=== PATIENT | male | born 1950 | race Caucasian/White ===

== ENCOUNTER 2022-11-26 11:32 | Emergency (ER) | payer OTHER, BC ==
[~2022-11-26] VITALS: Ht 165.1 cm; Wt 78.0 kg
[2022-11-26] MEDS ORDERED: FAMOTIDINE20 MG PO (12:35)
[2022-11-26] MEDS ORDERED: ATORVASTATIN CA40 MG PO (12:36)
[2022-11-26] MEDS ORDERED: MITIGARE0.6 MG PO (12:36)
== END 2022-11-26 14:50 | disposition home or self-care (01) ==
LOC: ER 11:32
DX: U07.1 COVID-19 (principal)